=== PATIENT | female | born 1960 | race African-American/Black ===

== ENCOUNTER 2019-06-08 20:36 | Emergency (ER) | payer BC ==
[2019-06-08] MEDS ORDERED: IBUPROFEN 400 MG TAB ONE (22:03)
[2019-06-08] MEDS ORDERED: ACETAMINOPHEN 500 MG TAB ONE (22:03)
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
[2019-06-08 23:57] VITALS: TEMP 98.4
[2019-06-08 23:58] VITALS: BP 152/77; O2SAT 100
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
--- OUTSIDE RECORDS SUMMARY | 2019-06-15 20:27 | XMS REPORT ---
:1960 Author Organization [facility] Address [address] [place] [address] Dr. Harry[address] [place] [id number] Care Team Providers Name Role Phone DR RILEY TRIANA Unavailable Unavailable Problems This patient has no known problems. Allergies, Adverse Reactions, Alerts This patient has no known allergies or adverse reactions. Medications This patient has no known medications. Encounters Start End Encounter Admission Attending Care Care Encounter Date/Time Date/Time Type Type Clinicians Facility Department ID 2018-11-08 2018-11-08 Outpatient DARRELL [facility] [id number] 04:37:00 07:45:00 RILEY
== END 2019-06-08 23:28 | disposition home or self-care (01) ==
LOC: ER 20:36
DX: M54.5 Low back pain (principal); V43.52XA Car driver injured in collision with other type car in traffic accident, initial encounter; Y93.89 Activity, other specified; Y92.410 Unspecified street and highway as the place of occurrence of the external cause
CPT/HCPCS: 72100; 99284